=== PATIENT | female | born 1940 | race Caucasian/White ===

== ENCOUNTER → 2019-08-13 | Outpatient (CLI) | payer MEDICARE, BC ==
--- NOTE | 2019-08-13 12:10 | MM ---
Reason for exam: clinical finding. Baseline mammogram. History: Patient is postmenopausal, history of other cancer, and had first child at age 36. Physical Findings: Nurse Summary: 3cm nodule in the left breast at 9 o'clock, 2cm nodule in the left breast at 12 o'clock (nurse TM). MG 3D Diag Mammo W/Cad CHIVO Bilateral CC and MLO view(s) were taken. Finding: There is an intermediate concern, suspicious high density, circumscribed mass in the subareolar position of the left breast. There is no discrete abnormality. Focal asymmetry right subareolar MLO view. These results were verbally communicated with the patient and result sheet given to the patient on 08/13/19. ASSESSMENT: Incomplete: need additional imaging evaluation, BI-RAD 0 RECOMMENDATION: Ultrasound of both breasts.
--- NOTE | 2019-08-13 12:13 | USB ---
Reason for exam: additional evaluation requested from abnormal screening. History: Patient is postmenopausal, history of other cancer, and had first child at age 36. US Breast Workup Limited CHIVO Right limited breast ultrasound including focal area of concern, retroareolar and axilla demonstrates a 0.4 x 0.5 x 0.7cm solid, shadowing, suspicious lesion at 1 o'clock and a 0.5 x 0.3 x 0.3cm solid lesion at 9 o'clock. Left complete breast ultrasound includes all four quadrants, the retroareolar region and axilla. Finding demonstrates a 1.8 x 1.4 x 1.8cm solid lesion at 12 o'clock, a 2.2 x 1.5 x 2.5cm mixed lesion at 8 o'clock with nodule present and an axilla node. These results were verbally communicated with the patient and result sheet given to the patient on 08/13/19. ASSESSMENT: Suspicious, BI-RAD 4 RECOMMENDATION: Ultrasound core biopsy of both breasts. (consider MRI) Called Dr. Nolasco's office with mammographic findings and has scheduled an appointment for the patient for 08/23/19 at 9:[address] Vazquez. Biopsy scheduled for 08/28/19 at 12:20. PRELIMINARY REPORT CALLED AND FAXED TO DR. VAZQUEZ ON 08/13/19.
== END | disposition home or self-care (01) ==
LOC: RADMAMWWP 09:37
PROVIDERS: ATTEND Family Medicine
DX: N63.22 Unspecified lump in the left breast, upper inner quadrant (principal); R92.8 Other abnormal and inconclusive findings on diagnostic imaging of breast
CPT/HCPCS: 77066; 76642; G0279; 77062

== ENCOUNTER → 2019-08-23 | Outpatient (CLI) | payer BC, MEDICARE ==
[2019-08-23 09:21] VITALS: BP 155/77; PULSE 119; RESP 18; TEMP 97.9
--- NOTE | 2019-08-23 10:21 | P.GSHP ---
History of Present Illness H&P Date: 08/23/19 Chief Complaint: abnormal mammogram, ultrasound, lump in left breast Joleen is a 79-year-old white female who presents for breast evaluation. She states that sometime ago she noted a lump in her left breast. A item have fallen out of the cupboard and hit her in that area and she attributed to the trauma. This occurred twice. However the area remained persistent and so she sought medical evaluation. The patient had a bilateral mammogram performed on [id number]. This revealed in intermediate concern suspicious high density lesion in the subareolar position of the left breast. There was no discrete abnormality. Ultrasound of both breast was then performed. Ultrasound of the left breast revealed a 1.8 cm solid lesion at 12:00 and a 2.2 cm mixed lesion at 8:00. She also had a questionable axillary node noted. In the right breast the patient was noted to have a 0.5 x 0.7 cm solid shadowing suspicious lesion at 1:00 and a 0.5 x 0.3 cm solid lesion at 9:00. The patient does not complian of pain in her breast. No changes in her skin. No nipple discharge. Family History: brother: pancreatic cancer father: lung cancer maternal grandfather: brain cancer patient with a history of basal cell cancer of chin Hormonal history: Menarche: 15 , breast fed: yes, first born at 36 menopause: 54 BCP: none hormones: none Surgical history: none Medical History: 1. HTN Social History: smoke: none alcohol: none drugs: none - Constitutional Constitutional: Denies chills, Denies fever - EENT Eyes: denies blurred vision, denies pain Ears: right: decreased hearing, deny: tinnitus Ears, nose, mouth and throat: Denies headache, Denies sore throat - Breasts Breasts: bilateral: as per HPI - Cardiovascular Cardiovascular: Reports high blood pressure - Respiratory Comment: post nasal drip Respiratory: Reports cough - Gastrointestinal Gastrointestinal: Denies abdominal pain, Denies diarrhea, Denies nausea, Denies vomiting - Genitourinary (Female) Genitourinary: Denies dysuria, Denies hematuria - Menstruation Menstruation: Reports postmenopausal - Musculoskeletal Comment: back pain Musculoskeletal: Denies myalgias - Integumentary Comment: basal cell cancer - Neurological Neurological: Denies numbness, Denies weakness - Psychiatric Psychiatric: Denies anxiety, Denies depression - Endocrine Endocrine: Denies fatigue, Denies weight change - Hematologic/Lymphatic Comment: none - Allergic/Immunologic Comment: bees, some food products Past Medical History History of Any Multi-Drug Resistant Organisms: None Reported Smoking Status: Never smoker Medications and Allergies Home Medications Medication Instructions Recorded Confirmed Type Cholecalciferol (Vitamin D3) 2,000 unit PO DAILY 08/23/19 08/23/19 History [Vitamin D3] Lisinopril 40 mg PO DAILY 08/23/19 08/23/19 History Allergies Allergy/AdvReac Type Severity Reaction Status Date / Time No Known Allergies Allergy Unverified 08/23/19 09:18 Surgical - Exam Vital Signs Temp Pulse Resp BP Pulse Ox 97.9 F 119 H 18 155/77 98 08/23/19 09:19 08/23/19 09:19 08/23/19 09:19 08/23/19 09:19 08/23/19 09:19 BMI 33.7 - General well developed, well nourished, no distress - Eyes normal ocular movement - ENT missing front teeth normal pinna, normal nares - Neck no masses, trachea midline - Respiratory normal expansion, normal respiratory effort, clear to auscultation - Cardiovascular Rhythm: regular Heart Sounds: normal: S1, S2 - Abdomen Abdomen: non tender, bowel sounds, no guarding, no rigid, no rebound - Integumentary basal cell of chin - Neurologic normal coordination, no disoriented, no combative - Musculoskeletal normal gait, normal posture - Psychiatric oriented to time, oriented to person, oriented to place, speech is normal, memory intact breast exam: Right breast: Multi-positional exam no dominant masses or nodules of concern, fibrocystic changes Right axilla: No adenopathy of concern Left breast: 12 oclock medial breast near the sternum is approximately a 2 x 2 centimeter firm mass, this is freely mobile and not attached to the underlying chest wall, fibrocystic changes, no other dominant masses or nodules of concern Left axilla: No adenopathy of concern BRA size: not wear a bra usually; probably a Cup B/C grade 3 ptosis Results mammogram and ultrasound reviewed Assessment and Plan Assessment: Impression: 1. 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 HTN Plan: 1. ultrasound core biopsy bilateral breast 2. follow up with dermatology 3. follow up after core biopsy The risk and benefits of ultrasound core biopsy were discussed with the patient and her daughter. The patient had a poor experience with the ultrasound stating that it was painful and the procedure was performed. I tried to reassure her and reassured her that the best method to obtain the biopsy would be via ultrasound before. She has agreed to undergo this procedure. It appears there are 2 lesions in each breast with a questionable lymph node in the left axilla and I have asked that all these areas. Dressings the time of the biopsy. The ligament of being able to biopsy may be related to the amount of anesthesia they can be used at the procedure. Additionally the patient has had a recent skin cancer diagnosed at the chin and is going to follow with dermatology with respect to this The lesion in the left breast in the medial aspect at 8:00 is highly suspicious clinically and regardless of the core biopsy results I would recommend this be excised. I suspect this will be positive for malignancy she may have multiple malignancies in both breast and depending on core biopsy results may recommend breast MRI. The patient will follow up after the core biopsies. Cc: Dr. Nolasco Encounter 40 minutes, > 50% of time in planning and counselling
== END | disposition home or self-care (01) ==
LOC: WWCWWP 09:00
PROVIDERS: ATTEND Surgery
DX: Z53.9 Procedure and treatment not carried out, unspecified reason (principal)

== ENCOUNTER → 2019-08-29 | Day surgery (SDC) | payer BC, MEDICARE ==
[2019-08-29 09:24] VITALS: RESP 16
[2019-08-29 11:24] VITALS: BP 158/70; PULSE 80; TEMP 98.1
--- NOTE | 2019-08-29 12:10 | USB ---
EXAMINATION TYPE: US biopsy breast VAD RT, US biopsy breast VAD LT, MG diagnostic mammo BI wo CAD, US breast aspiration single LT DATE OF EXAM: 08/29/2019 CLINICAL HISTORY: R92.8 Abnormal Mammogram. TECHNIQUE: Ultrasound guided core biopsy of bilateral breasts. COMPARISON: Ultrasound dated 08/13/2019 FINDINGS: The procedure of ultrasound guided core biopsy was explained to the patient. Benefits, alternatives, and risks were discussed. An informed consent was then obtained. Preprocedural timeout was performed. Site A: The patient was placed in supine positioning for imaging and for the procedure. The overlying skin was prepped and draped in usual sterile fashion. 10 cc of 1% lidocaine was used as anesthetic into the skin and subcutaneous tissue up to a 1.8 cm mass at the 12:00 position in the left breast. Under ultrasound guidance, a 12-gauge vacuum assisted biopsy gun device was used to obtain 5 core samples. Following this, a coil-shaped biopsy marker was left in the mass. Site B: The patient was placed in supine positioning for imaging and for the procedure. The overlying skin was prepped and draped in usual sterile fashion. 10 cc of 1% lidocaine was used as anesthetic into the skin and subcutaneous tissue up to a 2.5 cm mass at 8:00 position within the left breast. Under ultrasound guidance, a 12-gauge vacuum assisted biopsy gun device was advanced into the mass with near complete collapse. The mass on puncture. An 18- gauge spinal needle was used to aspirate a scant amount of hemorrhagic fluid. Hemorrhagic fluid was expelled from the mass, most consistent with a hematoma. Site C: The patient was placed in supine positioning for imaging and for the procedure. The overlying skin was prepped and draped in usual sterile fashion. 10 cc of 1% lidocaine was used as anesthetic into the skin and subcutaneous tissue up to a 7 mm mass at the 1:00 position in the right breast. Under ultrasound guidance, a 12-gauge vacuum assisted biopsy gun device was used to obtain 4 core samples. Following this, a coil-shaped biopsy marker was left in the mass. Postprocedure mammogram demonstrates appropriate bilateral biopsy marker placement. The patient tolerated the procedure well without any immediate complication. The patient was kept in the radiology department for short stay after the procedure and then discharged home in stable condition. IMPRESSION: Successful, uncomplicated ultrasound guided core biopsy bilateral highly suspicious breast masses at the 8:00 position of the left and 1:00 position in the right and left breast hematoma aspiration, full pathology results to follow. Pathology Results: High Risk LEFT BREAST, EIGHT O'CLOCK, ASPIRATE: Minimally cellular specimen consisting of blood, non-diagnostic. A. LEFT BREAST, TWELVE O'CLOCK, ULTRASOUND GUIDED CORE BIOPSY: Fragmented intraductal papilloma. B. RIGHT BREAST, ONE O'CLOCK, ULTRASOUND GUIDED CORE BIOPSY: Fragmented intraductal papilloma with sclerosis and extensive metaplastic changes. See note. Recommendation Surgical consult of the right breast. Papillomas, large, vascular, excision recommended. Left Aspirate: concordant, benign, cyst. MTDD
== END ==
LOC: RADUSWWP 09:01
PROVIDERS: ATTEND Surgery
DX: D24.2 Benign neoplasm of left breast (principal)
CPT/HCPCS: 88305; 88173; 88342; 88341; 77066; 76942; 19000; 19083; 19084; A4648; J2001

== ENCOUNTER → 2019-09-06 | Outpatient (CLI) | payer MEDICARE, BC ==
[2019-09-06 10:33] VITALS: BP 171/95; PULSE 98; RESP 18; TEMP 97.8
--- NOTE | 2019-09-06 11:18 | P.PN ---
Subjective Progress Note Date: 09/06/19 Principal diagnosis: status post ultrasound core biopsy of both breast Joleen is a 79-year-old white female status post ultrasound-guided core biopsy of both breasts. The left breast at 8:00 revealed a minimally cellular specimen consisting of blood, this was of the palpable abnormality site. This is also the site where she got hit in the breast and something fell from her cupboard. In the left breast at 12:00 a biopsy was done which revealed a fragmented intraductal papilloma Right breast at 1:00 revealed a fragmented intraductal papilloma with sclerosis and extensive metaplastic changes, this was considered suspicious and excision is recommended The patient post procedure developed bilateral ecchymosis. The ecchymosis is resolving and the patient has no complaints further at this time. She does have small hematomas at both sites of biopsy in the left breast. the 9 o'clock position in the right breast has been reevaluated with Dr. Nicolas from radiology and she does recommend a core biopsy of this site be performed as well. The reason it was not performed on the last study this it was felt to be the smallest of the 4 areas and the limit of local anesthetic had been reached. The case was reviewed with Dr. Rice from radiology. The area of greatest concern to me was the palpable area pre-biopsy in the left breast at the 8 o'clock position. This was also the area of prior trauma. The patient has persistent palpable mass at this site. I believe that this should be excised unless it resolves completely. Bilateral breast areas of intraductal papilloma are recommended to be excised. Objective - Vital Signs Vital signs: Vital Signs Temp 97.8 F 09/06/19 10:30 Pulse 98 09/06/19 10:30 Resp 18 09/06/19 10:30 BP 171/95 09/06/19 10:30 Pulse Ox 95 09/06/19 10:30 Intake & Output 09/05/19 09/06/19 09/06/19 18:59 06:59 18:59 Weight 81.647 kg - Exam BMI 31.9 - Constitutional General appearance: Present: average body habitus - EENT Eyes: Present: EOMI ENT: Present: hearing grossly normal - Neck Neck: Present: normal ROM - Respiratory Respiratory: bilateral: CTA - Cardiovascular Rhythm: regular Heart sounds: normal: S1, S2 - Gastrointestinal General gastrointestinal: Present: soft - Integumentary Integumentary Comment(s): achymosis left breast at biopsy sites, echymosis right breast at biopsy site Integumentary: Present: normal turgor - Musculoskeletal Musculoskeletal: Present: gait normal - Psychiatric Psychiatric: Present: A&O x's 3, appropriate affect - Additional findings Additional findings: right breast: Achymosis at biopsy site, no hematoma of concern Left breast ecchymosis at 8 OClock and 12 O clock biopsy sites, 8:00 Nodule remains palpable left breast approximately 2 cm in size at the medial inner aspect of the breast Assessment and Plan Assessment: impression: 1. Core biopsy right breast intraductal papilloma excision recommended via needle local excisional biopsy 2. Core biopsy 12:00 left breast intraductal papilloma excision recommended via needle local excisional biopsy 3. Palpable mass for which the patient initially presented the 8 o'clock position of the left breast core biopsy nondiagnostic, we will repeat an ultrasound in October if the lesion remains recommended needle local excisional biopsy of the radiographic abnormality as well as the palpable abnormality 4. Basal cell cancer of the chin 5. Hypertension 6. Patient does not have any bleeding abnormalities that she is aware of I have had a long discussion with the patient regarding the pathology results and recommendation for needle local excisional biopsy of one site in the right breast, an additional core biopsy of the right bresat at 9:00; and 2 sites in the left breast. The 8:00 site in the left breast is a palpable site. Risk and benefits of the procedure discussed with the patient including bleeding, infection, and reaction to the anesthetic. We've also discussed that there is always a possibility that the area which is localized well not be adequately excised and an additional procedure may be needed. The patient understands the risks and benefits. The patient wishes to postpone the procedure until November 2019. She understands that there may be malignancy present, however she still wishes to postpone the procedure. Plan: 1. Repeat evaluation in October 2019 with ultrasound of the left breast attention to the 8 o'clock position 2. Needle awoke and excisional biopsy of intraductal papillomas right breast at 1:00 3. Needle localization excisional biopsy intraductal papilloma left breast at 12:00 4. Ultrasound-guided core biopsy 9:00 area of the right breast prior to patient's next appointment I have reviewed the radiographs with Dr. Molina she does not feel there is any adenopathy of concern but agrees the 9 o'clock area of the right breast should have a core biopsy as well. She did not note any other radiographic abnormalities. The possibility is for needle local excisional biopsy of 2 sites in each breast for a total of 4 sites to be removed. The plan will needle localized of the 1:00 site in the right breast and possible needle local excisional biopsy of the 9:00 site depending on core biopsy results of the right breast lesion Left breast needle local excisional biopsy of the 12:00 site of the intraductal papilloma and repeat ultrasound of the left breast medial lesion if this has not resolved needle local excision of this which corresponds with a palpable change. Encounter 45 minutes with > 50% in planning and counselling Time with Patient: Greater than 30
== END | disposition home or self-care (01) ==
LOC: WWCWWP 10:09
PROVIDERS: ATTEND Surgery
DX: Z53.9 Procedure and treatment not carried out, unspecified reason (principal)

== ENCOUNTER → 2019-12-03 | Day surgery (SDC) | payer MEDICARE, BC ==
[2019-12-03 12:28] VITALS: RESP 16; TEMP 97.9
[2019-12-03 13:23] VITALS: BP 140/86; PULSE 100
--- NOTE | 2019-12-03 13:59 | USB ---
EXAMINATION TYPE: US biopsy breast add'l VAD RT, US biopsy breast VAD RT, MG diagnostic mammo RT wo CAD DATE OF EXAM: 12/03/2019 CLINICAL HISTORY: R92.8 abnl mammogram. TECHNIQUE: Two site ultrasound guided core biopsy of right breast. COMPARISON: Bilateral breast ultrasound dated 07/24/2019 and subsequent biopsies of the bilateral breasts. Biopsy-proven bilateral papillomas. FINDINGS: The procedure of ultrasound guided core biopsy was explained to the patient. Benefits, alternatives, and risks were discussed. An informed consent was then obtained. On preprocedural imaging a second 0.7 x 0.5 cm hypoechoic mass with increased through transmission was seen at the 10:00 location in zone BC. This was discussed with the patient and the patient requested 2 site biopsy as she would rather not return for additional biopsy and this could represent an additional papilloma. Preprocedural timeout was performed. Site A (9:00 right): The patient was placed in supine positioning for imaging and for the procedure. The overlying skin was prepped and draped in usual sterile fashion. 10 cc of 1% lidocaine was used as anesthetic into the skin and subcutaneous tissue up to the 0.5 cm mass at the 9:00 position in the right breast. Under ultrasound guidance, a 12-gauge vacuum assisted biopsy gun device was used to obtain 3 core samples. Following this, a wing shaped biopsy marker was left at the site of biopsy. Site B (10:00 right): The patient was placed in supine positioning for imaging and for the procedure. The overlying skin was prepped and draped in usual sterile fashion. 10 cc of 1% lidocaine was used as anesthetic into the skin and subcutaneous tissue up the 0.7 cm mass at the 10:00 position in the right breast. Under ultrasound guidance, a 12-gauge vacuum assisted biopsy gun device was used to obtain 4 core samples. Following this, a ribbon-shaped biopsy marker was left at the site of biopsy. The patient tolerated the procedure well without any immediate complication. The patient was kept in the radiology department for short stay after the procedure and then discharged home in stable condition. Postprocedure mammogram demonstrates appropriate biopsy marker placement of both biopsy markers. IMPRESSION: Successful, uncomplicated 2 site ultrasound guided core biopsy of right breast masses at the 9:00 and 10:00 position, full pathology results to follow. The bilateral prior biopsies revealed pathologic diagnosis of papilloma bilaterally. Excision is recommended, particularly for the 12:00-1:00 hypervascular palpable solid mass on the left. Pathology Results: High Risk A. RIGHT BREAST, SITE A AT 9:00, ULTRASOUND GUIDED CORE BIOPSY: Fragments of intraductal papilloma and background fibrocystic changes. B. RIGHT BREAST, SITE B AT 10:00, ULTRASOUND GUIDED CORE BIOPSY: Intraductal papilloma and background fibrocystic changes including sclerosing adenosis. Recommendation Surgical consult of the right breast. Similar lesions left breast noted. MTDD
--- NOTE | 2019-12-04 08:41 | USB ---
Reason for exam: clinical finding. History: Patient is postmenopausal, has history of high-risk lesion on a previous biopsy at age 79, history of other cancer, and had first child at age 36. Benign US breast aspiration single LT of the left breast, August 29, 2019. High risk US biopsy breast VAD LT of the left breast, August 29, 2019. High risk US biopsy breast add'l VAD RT of the right breast, August 29, 2019. US Breast Limited LT Left limited breast ultrasound including focal area of concern, retroareolar and axilla demonstrates a 1.9 x 1.6 x 1.6cm oval, solid lesion with clip at 1 o'clock BB at prior biopsy site, prior marked at 1 o'clock, biopsy proven papilloma, a 0.7 x 0.6 x 0.2cm oval duct ectasia at 9 o'clock, a 1.2 x 1.4 x 1.0cm oval, solid lesion with clip at 9 o'clock BB at prior biopsy site, previously marked at 8 o'clock, prior 2.2 x 1.5 x 2.5cm and a non-enlarged left axillary node. These results were verbally communicated with the patient and result sheet given to the patient on 12/03/19. ASSESSMENT: Benign, BI-RAD 2 RECOMMENDATION: Surgical consultation and localization and excision of the left breast. (High risk lesion-1:00/12:00 mass) Called office with mammographic findings and has scheduled an appointment for the patient for 12/13/19 at 4:[address] Vazquez. PRELIMINARY REPORT CALLED AND FAXED TO DR. VAZQUEZ ON 12/04/19.
== END ==
LOC: RADUSWWP 11:08 → EDSTATUS 11:40
PROVIDERS: ATTEND Surgery
DX: D24.1 Benign neoplasm of right breast (principal); R92.8 Other abnormal and inconclusive findings on diagnostic imaging of breast
CPT/HCPCS: 88305; 77065; 19083; 19084; 76642; A4648; J2001